=== PATIENT | female | born 1980 | race Two or more races ===

== ENCOUNTER 2016-08-06 16:50 | Emergency (ER) | payer MEDICAID ==
[~2016-08-06] VITALS: Wt 64.0 kg
[2016-08-06] MEDS ORDERED: ACETAMINOPHEN 325 MG TAB PO ONE (19:30)
--- NOTE | 2016-08-06 19:46 | ERD ---
ER Documentation Chief Complaint Date/Time DATE: 08/06/16 TIME: 19:38 Chief Complaint BILATERAL ARM SWELLING AND LEG SWELLING FOR 4 DAYS. NO SOB OR CP HPI Pleasant 35-year-old female presenting to emergency department today for 4 day history of joint pain and swelling. Patient has never had symptoms like this before, denies history of osteoarthritis, rheumatoid arthritis, or lupus. Denies family history of any autoimmune disorder. Reports that she eats a healthy diet, low-sodium, denies alcohol. Patient denies any dysuria, reports that she has had decreased urine output over the last 3 days, states that her skin feels itchy. She has no history of renal disease or renal insufficiency. Patient denies history of diabetes, has taken no [id number] medication or herbal therapy for treatment of symptoms. Patient is in room with her daughter for Tajik translation. Patient denies chest pain, shortness of breath, palpitations, or dizziness. Patient's oxygen saturation is 100% in exam room, she is not dyspneic, in no acute distress. ROS All systems reviewed and are negative except as per history of present illness. Medications Home Meds Active Scripts Naproxen* (Naprosyn*) 500 Mg Tablet, 500 MG PO BID Y for PAIN AND/OR INFLAMMATION, #30 TAB Prov:TODD MORALEZ 08/06/16 Allergies Allergies: Coded Allergies: No Known Drug Allergy (Verified Allergy, Unknown, 02/27/10) PMhx/Soc Medical and Surgical Hx: pt denies Medical Hx, pt denies Surgical Hx Hx Alcohol Use: No Hx Substance Use: No Hx Tobacco Use: No Smoking Status: Never smoker Physical Exam Vitals Vital Signs Date Time Temp Pulse Resp B/P Pulse Ox O2 Delivery O2 Flow Rate FiO2 08/06/16 22:05 68 16 118/63 99 Room Air 08/06/16 17:04 98.8 78 20 112/63 100 Vitals stable, nursing notes reviewed Physical Exam Const: No acute distress Head: Atraumatic Eyes: Normal Conjunctiva no jaundice, no pallor ENT: Normal External Ears, Nose and Mouth. Mucous membranes moist Neck: Full range of motion..~No JVD Resp: Clear to auscultation bilaterally no rales wheezes or rhonchi Cardio: Regular rate and rhythm, S1-S2, no S3, S4 no murmurs Abd: Soft, non tender, non distended. Normal bowel sounds Skin: No petechiae or rashes Back: No midline or flank tenderness Ext: Generalized peripheral edema on hands and feet, nonpitting, skin is warm to touch, capillary refill is brisk. Patient has full range of motion of joints but reports pain with movement. Neur: Awake and alert Psych: Normal Mood and Affect Result Diagram: 08/06/16194508/06/161945 Results 24 hrs Laboratory Tests Test 08/06/16 19:46 White Blood Count 5.810^3/ul Red Blood Count 3.8110^6/ul Hemoglobin 11.9g/dl Hematocrit 34.8% Mean Corpuscular Volume 91.3fl Mean Corpuscular Hemoglobin 31.2pg Mean Corpuscular Hemoglobin Concent 34.2g/dl Red Cell Distribution Width 12.4% Platelet Count 75464^3/UL Mean Platelet Volume 10.3fl Neutrophils % 48.0% Lymphocytes % 37.0% Monocytes % 6.0% Eosinophils % 5.0% Basophils % 2.0% Nucleated Red Blood Cells % 0.0/100WBC Neutrophils # 2.810^3/ul Lymphocytes # 2.110^3/ul Monocytes # 0.310^3/ul Eosinophils # 0.310^3/ul Basophils # 0.110^3/ul Nucleated Red Blood Cells # 0.010^3/ul Platelet Estimate PLT APPEAR ADEQUATE Erythrocyte Sedimentation Rate 20mm/Hr Urine Color LT. YELLOW Urine Clarity CLEAR Urine pH 6.0 Urine Specific [place] 1.025 Urine Ketones NEGATIVE Urine Nitrite NEGATIVE Urine Bilirubin NEGATIVE Urine Urobilinogen 0.2 E.U./dL Urine Leukocyte Esterase TRACE Urine Microscopic RBC 2-5/HPF Urine Microscopic WBC 2-5/HPF Urine Squamous Epithelial Cells FEW Urine Bacteria FEW Urine Hemoglobin 1+ Urine Glucose NEGATIVE% Urine Total Protein TRACE Sodium Level 141mmol/L Potassium Level 4.0mmol/L Chloride Level 104mmol/L Carbon Dioxide Level 28mmol/L Anion Gap 13 Blood Urea Nitrogen 13mg/dl Creatinine 0.51mg/dl Glucose Level 103mg/dl Calcium Level 8.9mg/dl Total Bilirubin 0.2mg/dl Direct Bilirubin 0.00mg/dl Indirect Bilirubin 0.2mg/dl Aspartate Amino Transf (AST/SGOT) 49IU/L Alanine Aminotransferase (ALT/SGPT) 50IU/L Alkaline Phosphatase 88IU/L Total Protein 7.1g/dl Albumin 3.8g/dl Globulin 3.30g/dl Albumin/Globulin Ratio 1.15 Current Medications Medications (Trade) Dose Ordered Sig/Daniela Route PRN Reason Start Time Stop Time Status Last Admin Dose Admin Acetaminophen (Tylenol Tab) 650 mg ONCE ONCE PO 08/06/16 19:30 08/06/16 19:33 DC 08/06/16 19:55 Interpretation text CBC shows no evidence of hemorrhage or infection Chemistry shows no evidence of significant electrolyte abnormalities or renal insufficiency Liver function tests shows no evidence of acute biliary or hepatic dysfunction ESR normal Procedures/MDM Pleasant 35-year-old female presenting to emergency department today for joint pain, and peripheral limb swelling. Swelling is predominantly localized to patient's hands and fingers, Patient denies history of any autoimmune disease, denies diabetes, heart disease, shortness of breath, or chest pain. Rheumatoid arthritis, lupus, osteoarthritis are considered, nurse practitioner will obtain labs CBC shows no evidence of anemia, or acute hemorrhage, ESR is normal, Chemistry shows no evidence of significant electrolyte abnormalities or renal insufficiency. DVT is not suspected, peripheral pulses palpable, negative Homans sign. Physical exam does not support a diagnosis of heart failure or CHF. Patient was treated with Tylenol for joint pain reports mild improvement in mobility and pain symptoms. I feel patient is a candidate for outpatient evaluation by primary care physician. I feel the patient is stable for discharge at this time. I have discussed results, examination findings, the treatment plan with the patient and family present prior to discharge. Indications for emergent reevaluation, side effects of medication were also discussed. All questions were answered. Patient verbalizes understanding and agrees with plan of care. Departure Diagnosis: Primary Impression: Bilateral hand swelling Additional Impression: Arthralgia Joint pain location: hand Laterality: bilateral Qualified Code: M25.541 - Arthralgia of both hands Condition: Serious [facility] Additional Instructions: Thank you for for coming to [facility] for your care today. Please ask your nurse or provider if you have questions about your care today and do not leave until all your questions have been answered. Please use any medications given as directed and follow-up with your doctor (or the doctor you were referred to) in the next 2-3 days. If you do not have a primary care doctor you may follow up at the [facility] [place] (listed below). You may also use motrin and tylenol as needed for fever and/or pain unless instructed otherwise by your provider or nurse. Indications for more urgent follow-up have been discussed, but you may return to the Emergency Department at ANY time for any worrisome or worsening symptoms. If you have abdominal pain, please know that no test or exam you received is perfect and you should follow up within 8 hours for continued pain. If you had any imaging studies today, such as an X-Ray or CT Scan, these studies will be reviewed later by a radiologist. You will be called if there are important findings that were not identified today, so make sure the contact information you provided at registration is correct. If you received any narcotic pain control medicine today, such as Vicodin, Morphine or Dilaudid, your coordination and judgment may be affected for a number of hours. Please do not drive or operate heavy machinery, and you may want someone to assist you at home. If you were given a prescription for narcotic medication, be aware that it is very addictive- use sparingly and only if necessary. TODD MORALEZ Aug 06, 2016 19:45
[2016-08-06 19:55] LABS: ADD SCAN DIFF NO
[2016-08-06 19:58] LABS: BASOPHIL # 0.1 10^3/ul (0.0-0.1); EOSINOPHILS # 0.3 10^3/ul (0.0-0.5); HEMATOCRIT 34.8 % (37.0-47.0); HEMOGLOBIN 11.9 g/dl (12.0-16.0); MEAN CORPUSCULAR HEMOGLOBIN 31.2 pg (29.0-33.0); MEAN CORPUSCULAR HGB CONC 34.2 g/dl (32.0-37.0); MEAN CORPUSCULAR VOLUME 91.3 fl (82.0-101.0); MEAN PLATELET VOLUME 10.3 fl (7.4-10.4); PLATELET COUNT 298 10^3/UL (140-415); RED BLOOD COUNT 3.81 10^6/ul (4.20-5.40); RED CELL DISTRIBUTION WIDTH 12.4 % (11.5-14.5); WHITE BLOOD COUNT 5.8 10^3/ul (4.8-10.8)
[2016-08-06 20:00] LABS: ADD UMIC YES; URINE BILIRUBIN (Dip) NEGATIVE (NEGATIVE); URINE BLOOD (Dip) 1+ (NEGATIVE); URINE COLOR LT. YELLOW (YELLOW); URINE GLUCOSE (Dip) NEGATIVE (NEGATIVE); URINE KETONES (Dip) NEGATIVE (NEGATIVE); URINE LEUKOCYTE ESTERASE (Dip) TRACE (NEGATIVE); URINE NITRITE (Dip) NEGATIVE (NEGATIVE); URINE TOTAL PROTEIN (Dip) TRACE (NEGATIVE); URINE UROBILINOGEN (Dip) 0.2 E.U./dL (0.1-1.0)
[2016-08-06 20:10] LABS: ALBUMIN 3.8 g/dl (3.3-4.9)
[2016-08-06 20:12] LABS: BILIRUBIN,INDIRECT 0.2 mg/dl (0-1.1); BILIRUBIN,TOTAL 0.2 mg/dl (0.2-1.3); CREATININE 0.51 mg/dl (0.44-1.00)
[2016-08-06 20:13] LABS: ALBUMIN/GLOBULIN RATIO 1.15; TOTAL PROTEIN 7.1 g/dl (6.1-8.1)
[2016-08-06 20:14] LABS: CALCIUM 8.9 mg/dl (8.4-10.2)
[2016-08-06 20:26] LABS: LYMPHOCYTES # 2.1 10^3/ul (0.8-2.9); MONOCYTE # 0.3 10^3/ul (0.3-0.9); NEUTROPHIL # 2.8 10^3/ul (1.6-7.5)
[2016-08-06 20:28] LABS: PLATELET ESTIMATE PLT APPEAR ADEQUATE
[2016-08-06 20:34] LABS: BACTERIA,URINE FEW; SQUAMOUS EPITHELIAL CELL,UR FEW
[2016-08-06] MEDS ORDERED: NAPR-260 PO (21:50)
[2016-08-06 22:05] VITALS: BP 118/63; PULSE 68; RESP 16
== END 2016-08-06 22:06 | disposition home or self-care (01) ==
LOC: FTE 16:50
DX: M79.89 Other specified soft tissue disorders (principal); M25.541 Pain in joints of right hand; M25.542 Pain in joints of left hand
CPT/HCPCS: 80053; 81001; 85025; 85651; Z7610; 81003; 99283